=== PATIENT | male | born 1970 | race African-American/Black ===

== ENCOUNTER 2018-03-29 23:28 | Emergency (ER) | payer BC, OTHER ==
[~2018-03-29] VITALS: Ht 177.8 cm; Wt 99.8 kg
[2018-03-30] MEDS ORDERED: INDOMETHACIN 25 MG CAPSULE PO ONE
--- NOTE | 2018-03-30 | NUR ---
Patient discharged to home in stable conditon. Written and verbal after care instructions given. Patient verbalizes understanding of instructions. Patient able to ambulate unassisted with a steady gait. Patient left with all personal belongings.
[2018-03-30] MEDS ORDERED: INDOMETHACIN 25 MG CAPSULE ONE (00:01)
[2018-03-30 00:03] VITALS: BP 148/98
== END 2018-03-30 | disposition home or self-care (01) ==
LOC: ER 23:36
DX: M25.50 Pain in unspecified joint (principal); I10 Essential (primary) hypertension; Z88.8 Allergy status to other drugs, medicaments and biological substances
CPT/HCPCS: A4663